=== PATIENT | female | born 1935 | race Two or more races ===

== ENCOUNTER 2023-06-24 19:08 | Emergency (ER) | payer OTHER ==
[~2023-06-24] VITALS: Ht 157.5 cm; Wt 40.4 kg
[2023-06-24] MEDS ORDERED: ZETIA10 MG (19:26)
[2023-06-24] MEDS ORDERED: SYNTHROID75 MCG (19:26)
[2023-06-24] MEDS ORDERED: PRILOSEC OTC20 MG (19:26)
[2023-06-24] MEDS ORDERED: LOSARTAN-HCTZ1 EACH (19:26)
[2023-06-24] MEDS ORDERED: METOCLOPRAMIDE HCL 5 MG/ML VIAL IM STA (20:21)
[2023-06-24] MEDS ORDERED: RINGERS SOLUTION,LACTATED 500 ML IV STA (20:22)
[2023-06-24] MEDS ORDERED: FAMOtidine 10 MG/ML (4ML VIAL) IV STA (20:23)
[2023-06-24 21:12] LABS: HEMATOCRIT 44.1 % (36.0-45.00); HEMOGLOBIN 14.8 g/dL (12.0-15.00); MEAN CELL VOLUME 91.8 fL (80.00-100.00); MEAN CORPUSCULAR HEMOGLOBIN 30.8 pg (27.00-32.0); MEAN CORPUSCULAR HGB CONC 33.6 g/dl (32.0-36.0); PLATELET COUNT 177 K/uL (150-450); RED CELL DISTRIBUTION WIDTH 14.6 % (11.5-14.5)
[2023-06-24 21:28] LABS: CALCIUM 10.1 mg/dL (8.5-10.1); CREATININE SERUM 0.75 mg/dL (0.55-1.02); GFR 72.76; POTASSIUM 4.62 mEq/L (3.5-5.1)
[2023-06-25] MEDS ORDERED: PEPCID40 MG PO (04:05)
[2023-06-25] MEDS ORDERED: PROTONIX40 MG PO (04:05)
[2023-06-25] MEDS ORDERED: ONDANSETRON ODT4 MG PO (04:05)
== END 2023-06-25 04:22 ==
LOC: ER 19:08
DX: K29.70 Gastritis, unspecified, without bleeding (principal)